=== PATIENT | male | born 2000 | race Caucasian/White ===

== ENCOUNTER 2019-02-04 19:12 | Emergency (ER) | payer MEDICAID ==
[~2019-02-04] VITALS: Ht 170.2 cm; Wt 104.3 kg
[2019-02-04 19:18] VITALS: BP_SYST 128
[2019-02-05] MEDS ORDERED: IBUPROFEN 800 MG TABLET PO ONE (01:00)
[2019-02-05] MEDS ORDERED: CYCLOBENZAPRINE HCL 10 MG TABLET (FLEXERIL) PO ONE (01:00)
[2019-02-05 02:02] VITALS: BP_SYST 120
== END 2019-02-05 02:02 | disposition home or self-care (01) ==
LOC: SED 19:12
DX: M54.40 Lumbago with sciatica, unspecified side (principal)
CPT/HCPCS: 99283

== ENCOUNTER 2022-09-07 19:49 | Emergency (ER) | payer MEDICAID ==
[~2022-09-07] VITALS: Ht 170.2 cm; Wt 117.9 kg
[2022-09-07 19:52] VITALS: BP_SYST 137
[2022-09-07 20:09] LABS: BILIRUBIN,URINE NEGATIVE (NEGATIVE); BLOOD, URINE NEGATIVE (NEGATIVE); CLARITY/URINE CLEAR (CLEAR); COLOR,URINE YELLOW (YELLOW); GLUCOSE,URINE NEGATIVE (NEGATIVE); KETONES,URINE NEGATIVE (NEGATIVE); LEUKOCYTE ESTERASE ,URINE NEGATIVE (NEGATIVE); NITRITE, URINE NEGATIVE (NEGATIVE); PH,URINE 7.5 (5.0-8.0); PROTEIN URINE NEGATIVE (NEGATIVE); UROBILINOGEN,URINE 0.2 (0.2-1.0)
[2022-09-07] MEDS ORDERED: KETOROLAC TROMETHAMINE 60 MG/2 ML VIAL IM ONE (20:30)
[2022-09-07 21:00] VITALS: BP_SYST 137
[2022-09-07] MEDS ORDERED: IBUP-1971 PO (21:05)
== END 2022-09-07 21:11 | disposition home or self-care (01) ==
LOC: SED 19:49
DX: M54.50 Low back pain, unspecified (principal); R10.31 Right lower quadrant pain; Z79.899 Other long term (current) drug therapy
CPT/HCPCS: 99283; 96372; 81003; J1885